=== PATIENT | male | born 1995 | race Caucasian/White ===

== ENCOUNTER 2024-05-28 12:39 | Outpatient (CLI) | payer BC, SELFPAY ==
--- NOTE | ~2024-05-28 | XR_ITS ---
XR shoulder LT min 2V Ordering provider: Hardy Miranda, [place] History: . Lt SHOULDER PAIN . Comparison: None. FINDINGS: BONES: No acute fracture or dislocation. 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 JOINT SPACES: The acromioclavicular joint is normal. The glenohumeral joint is normal. SOFT TISSUES: Normal. IMPRESSION: No acute osseous abnormality left shoulder. Reviewed, dictated and finalized at location A. [employer]
== END 2024-05-28 12:40 | disposition home or self-care (01) ==
LOC: GOSHIMG 12:46
PROVIDERS: PCP Chiropractor; Visit Provider Chiropractor
DX: M25.512 Pain in left shoulder (principal)
CPT/HCPCS: 73030